=== PATIENT | male | born 1980 | race Caucasian/White ===

== ENCOUNTER 2022-08-15 22:38 | Emergency (ER) | payer MEDICAID ==
[~2022-08-15] VITALS: Ht 162.6 cm; Wt 63.5 kg
--- NOTE | 2022-08-15 23:11 | NUR ---
blood collected and sent to lab
[2022-08-15 23:30] LABS: BASOPHILS % (AUTO) 0.7 % (0.0-2.0); EOSINOPHILS % (AUTO) 1.7 % (0.0-6.0); HEMATOCRIT 46 % (39-51); HEMOGLOBIN 15.2 g/dL (13.5-17.5); LYMPHOCYTES # (AUTO) 2.4 K/uL (0.8-4.8); LYMPHOCYTES % (AUTO) 40.8 % (20.0-44.0); MEAN CORPUSCULAR HGB CONC 33 g/dl (31.0-36.0); MEAN CORPUSCULAR VOLUME 89 fL (80-96); MONOCYTES # (AUTO) 0.4 K/uL (0.1-1.30); MONOCYTES % (AUTO) 6.7 % (2.0-12.0); NEUTROPHILS % (AUTO) 50.1 % (43.0-81.0); PLATELET COUNT (AUTO) 234 K/uL (150-450); RED BLOOD CELL COUNT(AUTO) 5.11 MIL/uL (4.5-6.0)
[2022-08-15 23:42] LABS: ALBUMIN 3.9 g/dL (3.4-5.0); BILIRUBIN,DIRECT 0.1 mg/dL (0.0-0.2); BILIRUBIN,TOTAL 0.3 mg/dL (0.2-1.0); CALCIUM, SERUM 8.7 mg/dL (8.5-10.1); CREATININE 0.8 mg/dL (0.6-1.3); POTASSIUM 3.2 mmol/L (3.5-5.1); TOTAL PROTEIN, SERUM 7.3 g/dL (6.4-8.2)
--- NOTE | 2022-08-15 23:49 | NUR ---
URINE COLLECTED AND SENT TO LAB
--- NOTE | 2022-08-16 00:01 | NUR ---
RLQ ABD PAIN RADIATING TO R LEGX4 DAYS. PLACED IN BED 10 IN GOWN. AWAITING FURTHER ORDERS.
[2022-08-16 00:25] LABS: BILIRUBIN,URINE NEGATIVE (NEGATIVE); COLOR,URINE OTHER (YELLOW); LEUKOCYTE ESTERASE ,URINE NEGATIVE (NEGATIVE); NITRITE, URINE NEGATIVE (NEGATIVE); PH,URINE 6.5 (5.0-8.0); PROTEIN,URINE NEGATIVE (NEGATIVE); UGLUCOSE NEGATIVE (NEGATIVE); UROBILINOGEN,URINE 0.2 EU/dL (0.2)
[2022-08-16] MEDS ORDERED: POTASSIUM CHLORIDE 20 MEQ TAB.PRT.SR PO ONE ×2 (00:30→00:37)
[2022-08-16 00:52] LABS: BACTERIA,URINE Rare /HPF (None Seen); SQUAMOUS EPITHELIAL CELL,UR Rare /HPF (None Seen); WBC,URINE 0-2 /HPF (0-3)
[2022-08-16] MEDS ORDERED: ACETAMINOPHEN 325 MG TABLET PO ONE (01:00)
[2022-08-16] MEDS ORDERED: FAMOTIDINE (20 MG) 20 MG TABLET PO ONE (01:00)
--- NOTE | 2022-08-16 03:45 | NUR ---
PROVIDED WITH MORE BLANKETS. RESTING COMFORTABLY. VSS.
[2022-08-16] MEDS ORDERED: ONDA4TAB5 PO (04:03)
[2022-08-16] MEDS ORDERED: FAMO40TA7 PO (04:03)
--- NOTE | 2022-08-16 04:20 | NUR ---
Patient discharged to home in stable condition. Written and verbal after care instructions given. Patient verbalizes understanding of instruction.
[2022-08-16 04:46] VITALS: BP 143/83
== END 2022-08-16 04:46 | disposition home or self-care (01) ==
LOC: ER 22:43
DX: R10.9 Unspecified abdominal pain (principal)
CPT/HCPCS: 36415; 80048-TC; 80076-TC; 81001; 83690-TC; 85025-TC

== ENCOUNTER 2022-11-16 02:34 | Inpatient (IN) | payer MEDICAID ==
[~2022-11-16] VITALS: Ht 162.6 cm; Wt 63.5 kg
[~2022-11-16 02:34] MED LIST: FAMO40TA7 PO; ONDA4TAB5 PO
--- NOTE | 2022-11-16 02:46 | NUR ---
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
--- NOTE | 2022-11-16 02:47 | NUR ---
PT AAOX4, IN NAD. PLACED COMFORTABLY IN BED, VITALS CHECKED.
--- NOTE | 2022-11-16 03:20 | NUR ---
PT TAKEN TO CT VIA [facility]
--- NOTE | 2022-11-16 03:30 | NUR ---
PT BACK FROM CT
--- NOTE | 2022-11-16 06:00 | NUR ---
20GA TO LEFT AC ESTABLISHED. BLOOD WORK COLLECTED AND SENT TO LAB.
--- NOTE | 2022-11-16 06:00 | NUR ---
COVID SWAB COLLECTED AND SENT TO LAB
--- NOTE | 2022-11-16 06:03 | NUR ---
DR POE DO ON PHONE CALL WITH DR ARAMBULA RADIOLOGIST
--- NOTE | 2022-11-16 06:04 | NUR ---
MOVE SHEET SUBMITTED
--- NOTE | 2022-11-16 06:10 | NUR ---
CALLED DR EMIR RUBI; LEFT VOICE MESSAGE
--- NOTE | 2022-11-16 06:19 | NUR ---
DR.GHOLAMI RUBI PAGED, LEFT MESSAGE.
[2022-11-16 06:25] LABS: BASOPHILS % (AUTO) 0.3 % (0.0-2.0); EOSINOPHILS % (AUTO) 0.5 % (0.0-6.0); HEMATOCRIT 41 % (39-51); HEMOGLOBIN 13.7 g/dL (13.5-17.5); LYMPHOCYTES # (AUTO) 1.5 K/uL (0.8-4.8); LYMPHOCYTES % (AUTO) 15.1 % (20.0-44.0); MEAN CORPUSCULAR HGB CONC 34 g/dl (31.0-36.0); MEAN CORPUSCULAR VOLUME 90 fL (80-96); MONOCYTES # (AUTO) 0.4 K/uL (0.1-1.30); MONOCYTES % (AUTO) 4.5 % (2.0-12.0); NEUTROPHILS # (AUTO) 7.7 K/uL (1.8-8.9); NEUTROPHILS % (AUTO) 79.6 % (43.0-81.0); PLATELET COUNT (AUTO) 185 K/uL (150-450); RED BLOOD CELL COUNT(AUTO) 4.56 MIL/uL (4.5-6.0); WHITE BLOOD COUNT (AUTO) 9.7 K/uL (4.3-11.0)
--- NOTE | 2022-11-16 06:26 | NUR ---
DR THANH SILVER ON PHONE CALL WITH DR TAY SILVER ADMITTING
[2022-11-16] MEDS ORDERED: PIPERACILLIN /TAZOBACTAM 3.375 G in IV D5W 50 ML IV ONE (06:30)
[2022-11-16] MEDS ORDERED: IV NS 0.9% 1,000 ML IV ONE (06:30)
[2022-11-16] MEDS ORDERED: MORPHINE SULFATE INJ 2 MG/ML DISP.SYRIN IV PRN (06:30)
[2022-11-16] MEDS ORDERED: ACETAMINOPHEN 325 MG TABLET PO PRN ×2 (06:30→13:00)
[2022-11-16] MEDS ORDERED: IV NS 0.9% 1,000 ML IV SCH (06:30)
[2022-11-16] MEDS ORDERED: ONDANSETRON HCL/PF 4 MG/2 ML VIAL IVP PRN ×2 (06:30→13:00)
--- NOTE | 2022-11-16 06:31 | NUR ---
NPO PER DR THANH SILVER
--- NOTE | 2022-11-16 06:34 | NUR ---
DR EMIR RUBI CALLED AGAIN, NO ANSWER. LEFT A MESAGE FOR CALL BACK.
[2022-11-16] MEDS ORDERED: PIPERACI/TAZO 3.375GM/D5W 50ML PB IV ONE (06:37)
[2022-11-16 06:41] LABS: ALBUMIN 3.3 g/dL (3.4-5.0); BILIRUBIN,DIRECT 0.1 mg/dL (0.0-0.2); BILIRUBIN,TOTAL 0.4 mg/dL (0.2-1.0); CALCIUM, SERUM 8.2 mg/dL (8.5-10.1); CREATININE 0.6 mg/dL (0.6-1.3); POTASSIUM 3.3 mmol/L (3.5-5.1); TOTAL PROTEIN, SERUM 6.4 g/dL (6.4-8.2)
--- NOTE | 2022-11-16 06:45 | NUR ---
18GA TO RIGHT AC ESTABLISHED. BLOOD CULTURES, BLOOD WORK COLLECTED AND SENT TO LAB.
--- NOTE | 2022-11-16 06:46 | NUR ---
PT TO CT W/ TECH
--- NOTE | 2022-11-16 06:57 | NUR ---
DR THANH SILVER ON PHONE CALL CHRISTINA RUBI
--- NOTE | 2022-11-16 07:04 | NUR ---
DR LAW ON PHONE CALL WITH DR ALBARRAN CARDIO THORACIC SURGERY
--- NOTE | 2022-11-16 07:07 | NUR ---
PAGED AGAIN, LEFT A MESSAGE AND WAITING FOR CALLBACK.
--- NOTE | 2022-11-16 07:28 | NUR ---
FAXED CLINICALS TO [facility] [phone].
--- NOTE | 2022-11-16 08:03 | NUR ---
CALLED [facility] [phone] PER [place], ON [address]. FAXING CLINICALS TO [phone]
--- NOTE | 2022-11-16 08:16 | NUR ---
CALLED [facility] [phone] AT [facility] PER [place] COORDIN[facility] [address]. WILL TAKE CLINICALS FAXED TO [phone].
--- NOTE | 2022-11-16 08:59 | NUR ---
CALLED [facility] LEFT . [phone]
--- NOTE | 2022-11-16 09:04 | NUR ---
CALLED [facility] TRANSFER [phone] [place]. [facility] CLOSED TO TRANSFERS AT THIS TIME. TRYING [place], DR. GIPSON SPEAKING WITH DR. LAW.
--- NOTE | 2022-11-16 09:39 | NUR ---
CALLING FROM [facility] AT [facility] [phone] [facility] NO BED[facility] AT [facility] NO BEDS AT [facility].
[2022-11-16] MEDS ORDERED: DIATR MEGLU/DIATRIZOATE SODIUM 120 ML BOTTLE (GASTROGRAPHIN) ONE (10:04)
--- NOTE | 2022-11-16 10:05 | NUR ---
CALLED [facility] [phone] [facility]. FAXED CLINICALS TO [phone].
--- NOTE | 2022-11-16 10:14 | NUR ---
CALLED [facility] [phone] NO BEDS AVAILABLE AT THIS TIME PER SAMMY.
--- NOTE | 2022-11-16 10:55 | NUR ---
CORRECT FAX NUMBER FOR [facility] [phone]
--- NOTE | 2022-11-16 11:26 | NUR ---
DR. FIELD SPEAKING WITH DR. LAW.
--- NOTE | 2022-11-16 12:41 | NUR ---
GOT BED 317-2 ADMITTING INFORMED.
[2022-11-16] MEDS ORDERED: MAGNESIUM HYDROXIDE 30 ML UDC PO PRN (13:00)
[2022-11-16] MEDS ORDERED: IV NS 0.9% 1,000 ML IV PRN (13:00)
[2022-11-16] MEDS ORDERED: ZOLPIDEM TARTRATE 5 MG TABLET PO PRN (13:00)
[2022-11-16] MEDS ORDERED: Z GUARD REMEDY 4 OZ OINT TP PRN (13:00)
[2022-11-16] MEDS ORDERED: MAG HYDROX/AL HYDROX/SIMETH 30 ML UDC PO PRN (13:00)
--- NOTE | 2022-11-16 13:25 | NUR ---
REPORT GIVEN TO GRACIELA FOR CONTINUATION OF CARE
[2022-11-16] MEDS ORDERED: PIPERACILLIN /TAZOBACTAM 3.375 G in IV D5W 100 ML IV SCH (14:00)
--- NOTE | 2022-11-16 14:24 | NUR ---
patient wants to leave AMA. DR. LAW/ELIZABETH AWARE
--- NOTE | 2022-11-16 14:37 | NUR ---
PATIENT SIGNED AMA FORM.
[2022-11-16 14:39] VITALS: BP 122/76
[2022-11-16] MEDS ORDERED: PIPERACILLIN /TAZOBACTAM 3.375 G in IV D5W 50 ML IV SCH (18:00)
== END 2022-11-16 21:00 | disposition left against medical advice (07) | DRG 254 ==
LOC: ER 02:37 → TELE 13:05
PROVIDERS: ADMIT Nurse Practitioner Acute Care; ATTEND Nurse Practitioner Acute Care
DX: T18.9XXA Foreign body of alimentary tract, part unspecified, initial encounter (principal); J98.2 Interstitial emphysema; J98.59 Other diseases of mediastinum, not elsewhere classified; E44.0 Moderate protein-calorie malnutrition; T18.198A Other foreign object in esophagus causing other injury, initial encounter; Z79.899 Other long term (current) drug therapy; X58.XXXA Exposure to other specified factors, initial encounter; Y92.9 Unspecified place or not applicable; H11.33 Conjunctival hemorrhage, bilateral; E87.6 Hypokalemia
CPT/HCPCS: 36415; 70486-TC; 70490-TC; 71250-TC; 80048-TC; 80076-TC; 83605-TC; 83690-TC; 85025-TC; 85730-TC; 86850-TC; 87040-TC; 87081-TC; C9803; G0378; J2543; J7030; J7060; Q9963